=== PATIENT | male | born 1935 | race Caucasian/White ===

== ENCOUNTER 2017-03-21 09:09 | Emergency (ER) | payer MEDICARE, BC ==
[2017-03-21 09:23] VITALS: BP 123/68
--- NOTE | 2017-03-21 09:40 | ED ---
Respiratory - HPI Summary HPI Summary: 82 yr old male with the complaint of cough. The patient began to get a runny nose, sore throat 6 days ago. For the past 4 days he has had coughing and chest congestion. He is bringing up clear sputum. He has not had SOB or CP. He has not had any fever. He states the coughing is the most annoying symptom that he has at this point. - History of Current Complaint Chief Complaint: UCRespiratory Stated Complaint: COUGH Time Seen by Provider: 03/21/17 09:24 - Allergy/Home Medications Allergies/Adverse Reactions: Allergies Allergy/AdvReac Type Severity Reaction Status Date / Time No Known Allergies Allergy Verified 03/21/17 09:15 Home Medications: Home Medications Amiodarone HCl [Amiodarone HCl-] 100 mg PO DAILY 03/21/17 [History Confirmed ] Apixaban* [Eliquis*] 5 mg PO DAILY 03/21/17 [History Confirmed 03/21/17] Clopidogrel TAB* [Plavix TAB*] 75 mg PO DAILY 03/21/17 [History Confirmed ] Docusate CAP* [Colace Cap*] 100 mg PO BID 03/21/17 [History Confirmed 03/21/17] Ipratropium HFA INHALER(NF) [Atrovent Hfa Inhaler(NF)] 2 puff INH QID 03/21/17 [ History Confirmed 03/21/17] Isosorbide Mononitrate ER TAB* [Imdur ER TAB*] 30 mg PO DAILY 03/21/17 [History Confirmed 03/21/17] Nitroglycerin TAB 0.4 MG* 0.4 mg SL Q5M PRN 03/21/17 [History Confirmed 03/21/17 ] PMH/Surg Hx/FS Hx/Imm Hx Previously Healthy: Yes Cardiovascular History: Reports: Hx Hypertension Respiratory History: Reports: Hx Asthma - Cancer History Cancer Type, Location and Year: prostate - Surgical History Surgery Procedure, Year, and Place: CABG. cardiac stents. radical prostectomy. appendectomy Infectious Disease History: No Infectious Disease History: Denies: Traveled Outside the [place] in Last 30 Days - Family History Known Family History: Positive: Cardiac Disease - Social History Occupation: Retired Alcohol Use: Occasionally Substance Use Type: Reports: None Smoking Status (MU): Former Smoker Review of Systems Constitutional: Negative Positive: Sore Throat, Nasal Discharge Positive: Cough All Other Systems Reviewed And Are Negative: Yes Physical Exam Triage Information Reviewed: Yes Vital Signs On Initial Exam: Initial Vitals Temp Pulse Resp BP Pulse Ox 98.5 F 71 18 123/68 98 03/21/17 09:18 03/21/17 09:18 03/21/17 09:18 03/21/17 09:18 03/21/17 09:18 Vital Signs Reviewed: Yes Appearance: Positive: Well-Appearing, No Pain Distress Skin: Positive: Warm, Skin Color Reflects Adequate Perfusion Head/Face: Positive: Normal Head/Face Inspection Eyes: Positive: EOMI ENT: Positive: Pharynx normal, TMs normal. Negative: Pharyngeal erythema, Nasal congestion Neck: Positive: Supple, Nontender Respiratory/Lung Sounds: Positive: Clear to Auscultation, Breath Sounds Present Cardiovascular: Positive: RRR. Negative: Murmur Abdomen Description: Positive: Nontender Musculoskeletal: Positive: Strength/ROM Intact Neurological: Positive: Sensory/Motor Intact, Alert, Oriented to Person Place, Time, CN Intact II-III Psychiatric: Positive: Normal - [place] Coma Scale Best Eye Response: 4 - Spontaneous Best Motor Response: 6 - Obeys Commands Best Verbal Response: 5 - Oriented Diagnostics - Vital Signs Vital Signs Temp Pulse Resp BP Pulse Ox 03/21/17 09:18 98.5 F 71 18 123/68 98 - Laboratory Lab Statement: Any lab studies that have been ordered have been reviewed, and results considered in the medical decision making process. Disposition - Course Course Of Treatment: 82 yr old with cough and uri symptoms. - Diagnoses Provider Diagnoses: URI (upper respiratory infection) Discharge - Discharge Plan Condition: Good Disposition: HOME Patient Education Materials: Upper Respiratory Infection (ED) Referrals: Benedict Tariq DO [Primary Care Provider] - 2 Days
--- NOTE | 2017-03-21 10:28 | RAD ---
Indication: Cough for one week. Comparison: No relevant prior exams available on the [facility] [place]. Technique: Dual energy PA and lateral chest views. Report: Elevated lung volumes and both diffuse mild prominence of the interstitial markings and patchy rarefaction of the mid to upper lung zone interstitial markings. No focal pulmonary lesion, compelling alveolar consolidation, pleural effusion, pneumothorax. RIGHT atrial, RIGHT ventricular, and coronary sinus level pacemaker leads. Median sternotomy wires. Unremarkable central pulmonary vasculature. Mildly tortuous descending thoracic aorta. IMPRESSION: Stigmata of obstructive lung disease. No acute pulmonary or cardiac process evident.
== END 2017-03-21 10:44 | disposition home or self-care (01) ==
LOC: UCCORT 09:09
DX: J06.9 Acute upper respiratory infection, unspecified (principal); Z79.01 Long term (current) use of anticoagulants; Z79.02 Long term (current) use of antithrombotics/antiplatelets; I10 Essential (primary) hypertension; J45.909 Unspecified asthma, uncomplicated; Z85.46 Personal history of malignant neoplasm of prostate; Z87.891 Personal history of nicotine dependence
CPT/HCPCS: 71020; 99212; G0463

== ENCOUNTER 2017-10-01 17:54 | Emergency (ER) | payer MEDICARE, BC ==
[2017-10-01 18:29] VITALS: BP 152/70
--- NOTE | 2017-10-01 18:33 | UC ---
Throat Pain/Nasal Gaetano HPI - HPI Summary HPI Summary: Pt presents with sinus pain/pressure/congestion and intermittently productive cough for the last 6 days. Has felt feverish at times, but has not taken his temperature. Has been taking an OTC cold and flu medication with mild relief of his cough. Denies SOB, chest pain, abdominal pain, n/v/d/c. - History of Current Complaint Chief Complaint: UCGeneralIllness Stated Complaint: STUFFY Time Seen by Provider: 10/01/17 18:23 Hx Obtained From: Patient Onset/Duration: Gradual Onset Severity: Mild Pain Intensity: 2 Pain Scale Used: 0-10 Numeric - Allergies/Home Medications Allergies/Adverse Reactions: Allergies Allergy/AdvReac Type Severity Reaction Status Date / Time No Known Allergies Allergy Verified 10/01/17 18:17 Home Medications: Home Medications Guaifen/Dextromethorphan/PE [Mucinex Fast-Max Severe C 5-10-200 mg] 1 tab PO Q8H 10/01/17 [History Confirmed 10/01/17] Levothyroxine Sodium [Synthroid] 50 mcg PO DAILY 10/01/17 [History Confirmed 11/13] Rosuvastatin Calcium [Crestor] 20 mg PO DAILY 10/01/17 [History Confirmed ] PMH/Surg Hx/FS Hx/Imm Hx Endocrine History: Hypothyroidism, Dyslipidemia Cardiovascular History: Cardiac Disease, Pacemaker/ICD - Surgical History Surgical History: Yes Surgery Procedure, Year, and Place: CABG. cardiac stents. radical prostectomy. appendectomy. PACEMAKER/DEFIBRILLATOR - Family History Known Family History: Positive: Cardiac Disease - Social History Occupation: Retired Lives: With Family Alcohol Use: Occasionally Substance Use Type: None Smoking Status (MU): Former Smoker When Did the Patient Quit Smoking/Using Tobacco: 1988 Review of Systems Constitutional: Negative Skin: Negative Eyes: Negative ENT: Nasal Discharge, Sinus Congestion, Sinus Pain/Tenderness Respiratory: Cough Cardiovascular: Negative Gastrointestinal: Negative Neurovascular: Negative Musculoskeletal: Negative Neurological: Negative Psychological: Negative All Other Systems Reviewed And Are Negative: Yes Physical Exam - Summary Physical Exam Summary: GENERAL: NAD. WDWN. No pain distress. SKIN: No rashes, sores, ulcers, masses, lesions. HEENT: Head: AT/NC Eyes: Conjunctiva clear without inflammation or discharge. Ears: Hearing grossly normal. TMs intact, no bulging, erythema, or edema. Nose: Nasal mucosa mildly swollen and erythematous with clear discharge. TTP maxillary sinus Throat: Posterior oropharynx without exudates, erythema, or tonsillar enlargement. Uvula midline. NECK: Supple. Nontender. No lymphadenopathy. CHEST: Mild wheezing throughout. No r/r. No accessory muscle use. Breathing comfortably and in no distress. CV: RRR. Without m/r/g. Pulses intact. Brisk cap refill. NEURO: Alert. CN II-XII grossly intact. PSYCH: Age appropriate behavior. Triage Information Reviewed: Yes Vital Signs: Initial Vital Signs Temp 100.6 F 10/01/17 18:16 Pulse 78 10/01/17 18:16 Resp 24 10/01/17 18:16 BP 152/70 10/01/17 18:16 Pulse Ox 94 10/01/17 18:16 Throat Pain/Nasal Course/Dx - Course Course Of Treatment: Sinusitis. Bronchitis. Given his comorbidities - will cover him with doxycycline and have him f/u with his PCP prn. - Differential Dx/Diagnosis Provider Diagnoses: Sinusitis. Bronchitis Discharge - Sign-Out/Discharge Documenting (check all that apply): Discharge - Discharge Plan Condition: Stable Disposition: HOME Prescriptions: DOXYcycline CAP(*) [DOXYcycline 100MG CAP(*)] 100 mg PO BID #20 cap Patient Education Materials: Sinusitis (ED) Referrals: Benedict Tariq DO [Primary Care Provider] - Additional Instructions: If you develop a fever, shortness of breath, chest pain, new or worsening symptoms - please call your PCP or go to the ED. - Billing Disposition and Condition Condition: STABLE Disposition: HOME
== END 2017-10-01 18:53 | disposition home or self-care (01) ==
LOC: UCCORT 17:54
DX: J32.9 Chronic sinusitis, unspecified (principal); J40 Bronchitis, not specified as acute or chronic; Z87.891 Personal history of nicotine dependence; E03.9 Hypothyroidism, unspecified; E78.5 Hyperlipidemia, unspecified; Z95.810 Presence of automatic (implantable) cardiac defibrillator
CPT/HCPCS: 99212; G0463